=== PATIENT | male | born 1960 | race Caucasian/White ===

== ENCOUNTER 2024-03-18 13:04 | Outpatient (CLI) | payer BC, SELFPAY ==
--- NOTE | ~2024-03-18 | XR_ITS ---
3 VIEWS LUMBAR SPINE Ordering provider: José Sidhu, History: . Low back pain . Comparison: None. FINDINGS: VERTEBRAL BODIES:Dextroscoliosis. No visible fracture or subluxation. Degenerative changes of the sp ine. Slight loss of volume of T12 most likely chronic. DISK SPACES: Narrowing of the disc L2-L3, L3-L4, L4-L5 and L5-S1. Narrowing of the disc T12-L1. Facet joint disease at the level of L4-L5 and L5-S1. SOFT TISSUES: Normal. IMPRESSION: No acute osseous abnormality lumbar spine. Multilevel degenerative disc disease. Reviewed, dictated and finalized at location A.
== END 2024-03-18 13:05 | disposition home or self-care (01) ==
PROVIDERS: PCP Internal Medicine; Visit Provider Internal Medicine
DX: M51.36 Other intervertebral disc degeneration, lumbar region (principal); M51.37 Other intervertebral disc degeneration, lumbosacral region; M51.35 Other intervertebral disc degeneration, thoracolumbar region; M47.896 Other spondylosis, lumbar region; M47.817 Spondylosis without myelopathy or radiculopathy, lumbosacral region
CPT/HCPCS: 72100